=== PATIENT | male | born 1995 | race American Indian/Alaskan Native ===

== ENCOUNTER 2021-09-11 14:26 | Emergency (ER) | payer SELFPAY ==
[2021-09-11 16:47] VITALS: BP 123/68
[2021-09-11] MEDS ORDERED: KETOROLAC 10 MG TAB PO ONE (16:59)
[2021-09-11] MEDS ORDERED: ACETAMINOPHEN W/CODEINE 300-30 MG TAB PO ONE (16:59)
--- NOTE | 2021-09-11 17:39 | XRay Report ---
Right foot 3 views INDICATION: Injury FINDINGS: MTP joints and IP joints appear normal. Midfoot alignment appears normal. No acute fracture . Signer Name: Isidro Mcdaniel MD Signed: 09/11/2021 5:35 PM Workstation Name: [id number]
--- NOTE | 2021-09-11 17:47 | Emergency Department Report ---
ED Lower Extremity HPI - General Chief Complaint: Extremity Injury, Lower Stated Complaint: FOOT INJURY Time Seen by Provider: 09/11/21 16:41 Source: patient Mode of arrival: Ambulatory Limitations: No Limitations - History of Present Illness Initial Comments: 26-year-old black male with no past medical history presents to the emergency department for evaluation of 2-day history of right foot pain. He states that 2 days ago he fell and landed on his foot and has had pain and swelling in the area since then. He states that pain is 9 out of 10 and worse when he ambulates. MD Complaint: foot injury -: Sudden, days(s) (To) Injury: Foot: Right Place: street/outdoors Severity: severe Severity scale (0 -10): 9 Worsens With: weight bearing Associated Symptoms: swelling, able to partially bear weight. denies: snap/pop sensation, numbness, tingling, unable to bear weight - Related Data Previous Rx's Medication Instructions Recorded Last Taken Type Naproxen [Naprosyn] 500 mg PO BID #14 tab 09/11/21 Unknown Rx Allergies Allergy/AdvReac Type Severity Reaction Status Date / Time amoxicillin Allergy Hives Verified 09/11/21 16:51 ED Review of Systems ROS: Stated complaint: FOOT INJURY Other details as noted in HPI Comment: All other systems reviewed and negative Constitutional: denies: chills, fever, weakness Respiratory: denies: shortness of breath Cardiovascular: denies: chest pain, palpitations, dyspnea on exertion Gastrointestinal: denies: abdominal pain, nausea, vomiting Musculoskeletal: denies: back pain Neurological: denies: headache, weakness ED Past Medical Hx - Past Medical History Hx Psychiatric Treatment: No - Social History Smoking Status: Never Smoker Substance Use Type: None - Medications Home Medications: Home Medications Medication Instructions Recorded Confirmed Last Taken Type Naproxen [Naprosyn] 500 mg PO BID #14 tab 09/11/21 Unknown Rx ED Physical Exam - General Limitations: No Limitations General appearance: alert, in no apparent distress - Head Head exam: Present: atraumatic, normocephalic - Eye Eye exam: Present: normal appearance. Absent: conjunctival injection - Neck Neck exam: Present: normal inspection - Respiratory Respiratory exam: Absent: respiratory distress - Cardiovascular Cardiovascular Exam: Present: regular rate - GI/Abdominal GI/Abdominal exam: Present: soft. Absent: distended - Expanded Lower Extremity Exam Right Foot/Toe exam: Present: tenderness, swelling. Absent: full ROM, abrasion, laceration, ecchymosis, deformity, crepidus, erythema, puncture wound, foreign body, calcaneal tenderness, tenderness at base of 5th metatarsal, nail avulsion, subungual hematoma Neuro vascular tendon exam: Present: no vascular compromise. Absent: pulse deficit, abnormal cap refill, motor deficit, sensory deficit, extremity cold to touch, pallor Gait: Positive: observed and limited by pain - Back Exam Back exam: Present: normal inspection - Neurological Exam Neurological exam: Present: alert, oriented X3 - Psychiatric Psychiatric exam: Present: normal affect, normal mood - Skin Skin exam: Present: warm, dry, intact, normal color ED Course Vital Signs 09/11/21 09/11/21 09/11/21 15:07 16:46 18:06 Temperature 97.7 F 97.6 F 98.5 F Pulse Rate 78 64 60 Respiratory 18 20 18 Rate Blood Pressure 113/73 123/68 [Right] O2 Sat by Pulse 100 100 98 Oximetry ED Lower Extremity MDM - Radiology Data Radiology results: report reviewed, image reviewed Right foot x-ray: FINDINGS: MTP joints and IP joints appear normal. Midfoot alignment appears normal. No acute fracture. - Medical Decision Making 26-year-old black male with no past medical history presents to the emergency department for evaluation of 2-day history of right foot pain. He states that 2 days ago he fell and landed on his foot and has had pain and swelling in the area since then. He states that pain is 9 out of 10 and worse when he ambulates. Right foot pain without any acute abnormalities noted. Patient will be treated for musculoskeletal pain and discharged home with naproxen to take for pain. He is advised to take medications as prescribed and follow-up with primary care provider if no improvement or worsening symptoms. He is advised to return to the emergency department for any concerning symptoms. He verbalizes understanding of and agreement with plan of care. Critical care attestation.: If time is entered above; I have spent that time in minutes in the direct care of this critically ill patient, excluding procedure time. ED Disposition Clinical Impression: Right foot pain Disposition: HOME / SELF CARE / HOMELESS Is pt being admited?: No Does the pt Need Aspirin: No Condition: Stable Instructions: How to Use Cold Therapy, [id number], Foot Contusion, [id number], Musculoskeletal Pain Additional Instructions: Take medication as prescribed. Follow-up with primary care provider if no improvement or worsening symptoms. Return to the emergency department as needed. Prescriptions: Naproxen [Naprosyn] 500 mg PO BID #14 tab Referrals: TERRELL BETTS MD [Staff Physician] - 3-5 Days ROSALINE MCGRATH MD [Staff Physician] - 3-5 Days Forms: Work/School Release Form(ED) Time of Disposition: 17:46
== END 2021-09-11 18:58 | disposition home or self-care (01) ==
LOC: ED 14:26
DX: M79.671 Pain in right foot (principal); Z88.0 Allergy status to penicillin
CPT/HCPCS: 99283

== ENCOUNTER 2021-10-07 23:26 | Emergency (ER) | payer SELFPAY ==
[2021-10-08 06:33] VITALS: BP 98/56
--- NOTE | 2021-10-08 06:43 | Emergency Department Report ---
ED Laceration HPI - HPI Chief Complaint: Wound/Laceration Stated Complaint: FOREHEAD LACERATION Time Seen by Provider: 10/08/21 04:54 Occurred When: Today Location: Head Severity: mild Tetanus Status: Up to Date Laceration Symptoms: Yes Pain, No Foreign Body Sensation, No Numbness, No Weakness Other History: Then hit head resulting in laceration to the forehead. Reports no fever, chills, sweats. No loss of consciousness, no nausea, no vomiting, no neck pain ED Review of Systems ROS: Stated complaint: FOREHEAD LACERATION Other details as noted in HPI Comment: All other systems reviewed and negative ED Past Medical Hx - Past Medical History Hx Psychiatric Treatment: No - Social History Smoking Status: Never Smoker Substance Use Type: None - Medications Home Medications: Home Medications Medication Instructions Recorded Confirmed Last Taken Type Naproxen [Naprosyn] 500 mg PO BID #14 tab 09/11/21 Unknown Rx Laceration Physical Exam - Exam General: Vital signs noted. No distress. Alert and acting appropriately. Wound Length (cm): 3 Laceration Location: Head Laceration Exam: Yes Normal Distal CMS, No Foreign Body, No Exposed Tendon, Vessel, or Nerve, No Tendon Injury ED Course Vital Signs 10/08/21 10/08/21 10/08/21 00:15 05:52 05:53 Temperature 98.4 F 98.7 F Pulse Rate 74 59 L Respiratory 18 15 15 Rate Blood Pressure 103/50 Blood Pressure 98/56 [Left] O2 Sat by Pulse 94 100 100 Oximetry - Laceration /Wound Repair Head Wound Location: face Wound Length (cm): 3 Wound's Depth, Shape: linear Betadine Prep?: Yes Wound Repaired With: Dermabond Critical care attestation.: If time is entered above; I have spent that time in minutes in the direct care of this critically ill patient, excluding procedure time. ED Disposition Clinical Impression: Forehead laceration Disposition: 01 HOME / SELF CARE / HOMELESS Is pt being admited?: No Does the pt Need Aspirin: No Condition: Stable Instructions: Sutures, Laurel, or Adhesive Wound Closure Additional Instructions: You were seen and evaluated for a forehead laceration which was closed with Dermabond.. The Dermabond will slowly dissolve and once he gets to complete dissolution your laceration will be healed you may follow-up with your doctor in 2 to 3 days for wound reevaluation for any signs of infection Referrals: [facility] [Provider Group] - 3-5 Days
== END 2021-10-08 06:58 | disposition home or self-care (01) ==
LOC: ED 23:26
DX: S01.81XA Laceration without foreign body of other part of head, initial encounter (principal); W22.8XXA Striking against or struck by other objects, initial encounter; Y93.89 Activity, other specified; Y92.89 Other specified places as the place of occurrence of the external cause; Y99.8 Other external cause status
CPT/HCPCS: 99283